=== PATIENT | female | born 1965 | race Caucasian/White ===

== ENCOUNTER → 2017-01-22 | Outpatient (CLI) | payer OTHER ==
[~2017-01-22] VITALS: Ht 162.6 cm; Wt 59.9 kg
[~2017-01-22] MED LIST: HORMONE TROCHE PO; HYDROCHLOROTHIA25 M2 PO; LISINOPRIL2.5 M1 PO; TUMS PO
--- NOTE | ~2017-01-22 | S ---
[facility] [place] [address] SURGICAL PATH RPT PROCEDURE Name: EMILY MARTEL Room #: REG [facility]..#: [id number] Admission: 01/22/17 Date of : 65 Discharge: Report #: [id number] Path Case #: [id number] PATHOLOGY REPORT COLLECTION DATE: 01/22/2017 RECEIVED DATE: 01/22/2017 SUBMITTING PHYS: Dr. Ranjith Tidwell OTHER PHYS: Dr. Jenifer Morfin SPECIMEN(S) RECEIVED: A.Colon polyp at 50 cm * * * * * * * * * * * * FINAL DIAGNOSIS: Colonic mucosa "colon polyp at 50 cm": - Tubulovillous adenoma. - There is no evidence of high grade dysplasia or malignancy. (SHA:mml; 01/23/2017) PATHOLOGIST: Rajesh Vines M.D. REPORT ELECTRONICALLY SIGNED BY: Rajesh Vines M.D. DATE/TIME: 01/23/2017 13:37 * * * * * * * * * * * * GROSS PATHOLOGY: The specimen is received in formalin, labeled "Emily Martel and polyp at 50 cm colon", is a sessile lee polyp 1.0 x 0.7 x 0.5 cm inked black, serially sectioned and entirely submitted in A1. ([facility]; 01/22/2017) CLINICAL HISTORY: Screening, colon polyp INITIAL CPT CODE(S): A; 24670 Professional services performed by [facility] at [facility] [address], [place] [address] Technical services performed by [facility] at [address] [place] [address], [address] [address]. [facility] [address] [place] [address] SURGICAL PATH RPT PROCEDURE Name: EMILY MARTEL Room #: REG [facility] Vera#: [id number] Admission: 01/22/17 Date of : 65 Discharge: Report #: [id number] Path Case #: [id number] [address] PHONE: [phone] DIRECTOR: He Ybarra M.D. * * * END OF REPORT * * *
--- NOTE | ~2017-01-22 | P ---
[facility] [place] [address] PROCEDURE REPORT Name: TAHMINAEMILY Chandler Room #: REG [facility]#: [id number] Admission: 01/22/17 Attend Phys: Ranjith Tidwell MD Discharge: Date of : 65 Report #: [id number] THIS REPORT FOR: //name// CC: [facility] physician/PCP Ranjith Morfin MD DATE OF SERVICE: 01/22/2017 BRIEF HISTORY: The patient is a 51-year-old woman for her first average risk screening colonoscopy. PREOPERATIVE DIAGNOSIS: Average risk screening colonoscopy. POSTOPERATIVE DIAGNOSIS: Colon polyp. MEDICATIONS: Deep sedation with propofol per anesthesia. SPECIMEN: Polyp from 50 cm. ESTIMATED BLOOD LOSS: 3 mL. PROCEDURE: Colonoscopy to cecum and terminal ileum with hot snare polypectomy. FINDINGS: Prior to propofol sedation, procedure of colonoscopy discussed with the patient as well as potential risks and its complications. She indicates she understands and desires to proceed. DESCRIPTION OF PROCEDURE: With the patient in left lateral decubitus position, digital examination was completed which revealed no abnormalities. Subsequently, [employer] video colonoscope was introduced in the rectum, advanced under direct vision to the cecum. Done with minimal difficulty. Cecum was identified by the ileocecal valve and the appendiceal orifice. I was able to visualize the distal segment of terminal ileum, which was inspected and noted to be unremarkable. At that point, the scope was slowly withdrawn and careful circumferential views obtained including retroflexing the scope in the ascending colon. Upon slow withdrawal of the scope, the prep was noted to be excellent. Mucosa normal limits, normal vascular pattern, normal light reflex. As we withdrew the scope, she does not have a very dilated and tortuous colon suggestive of chronic constipation. No obstructing lesions were seen. The proximal colon was more dilated in the distal colon. As we withdrew the scope into the descending colon at 50 cm, a 15 mm benign-appearing polyp was seen on a narrow base and removed by hot snare polypectomy. The polyp was initially lost and after extensive searching, we finally recovered the polyp and a Servin net. Upon further withdrawal of the scope, the mucosa was normal through the remainder of the colon. No additional polypoid lesions were seen. Scope was [facility] [address] [place] [address] PROCEDURE REPORT Name: TAHMINAEMILY N Room #: REG [facility].#: [id number] Admission: 01/22/17 Attend Phys: Ranjith Tidwell MD Discharge: Date of : 65 Report #: [id number] withdrawn in the rectum and upon retroflexion, no abnormalities were seen. Scope was withdrawn. The patient tolerated procedure well. CONDITION OF THE PATIENT UPON DISCHARGE: Following the procedure, the patient drowsy, aroused, conversant and will be discharged home when fully ambulatory. INSTRUCTIONS TO THE PATIENT AND FAMILY AT THE TIME OF DISCHARGE: Polyp removed as noted above. This has the appearance of an adenoma and due to its size, this will be considered an advanced adenoma. Therefore, suggest return in 3 years for surveillance colonoscopy. We will follow up on the path and make further recommendations as needed. She will return to care of Dr. Jenifer Morfin and return to see me as needed. The patient has a dilated colon suggestive of constipation, suggest high fiber diet or fiber product such as Metamucil and MiraLax daily if needed. This is the patient's first colonoscopy, average risk. Withdrawal time from the cecum including time to find the lost followup was 20 minutes 45 seconds. <ELECTRONICALLY SIGNED> By: Ranjith Tidwell MD 01/23/17 [id number] Ranjith Tidwell MD /nt
== END | disposition home or self-care (01) ==
LOC: GI 08:26
DX: Z12.11 Encounter for screening for malignant neoplasm of colon (principal); D12.4 Benign neoplasm of descending colon
CPT/HCPCS: 62110; 62900

== ENCOUNTER → 2019-10-31 | Outpatient (CLI) | payer OTHER | LOC: SJCVCIMAG 09:46 | PROVIDERS: ATTEND Internal Medicine | DX: I08.1 Rheumatic disorders of both mitral and tricuspid valves (principal); I10 Essential (primary) hypertension ==